=== PATIENT | male | born 1950 | race Caucasian/White ===

== ENCOUNTER → 2023-05-20 06:26 | Day surgery (SDC) | payer OTHER, SELFPAY ==
[2023-05-20 07:46] LABS: Glucose - Point of Care 96 mg/dl (70-99)
== END ==
LOC: GI 06:26
PROVIDERS: ATTENDING PHYSICIAN Internal Medicine Gastroenterology
DX: Z12.11 Encounter for screening for malignant neoplasm of colon (principal); Z86.010 Personal history of colon polyps; K57.30 Diverticulosis of large intestine without perforation or abscess without bleeding; K63.5 Polyp of colon; D12.4 Benign neoplasm of descending colon
CPT/HCPCS: 45385; 88305; 82962

== ENCOUNTER → 2023-06-19 15:56 | Outpatient (REF) | payer OTHER, SELFPAY | LOC: RAD 15:56 | PROVIDERS: ATTENDING PHYSICIAN Nurse Practitioner Family | DX: M25.562 Pain in left knee (principal); M25.561 Pain in right knee | CPT/HCPCS: 73564 ==

== ENCOUNTER → 2024-05-11 12:35 | Outpatient (REF) | payer OTHER, SELFPAY | LOC: RAD 12:35 | PROVIDERS: ATTENDING PHYSICIAN Nurse Practitioner Family; FAMILY PHYSICIAN Family Medicine | DX: R91.8 Other nonspecific abnormal finding of lung field (principal) | CPT/HCPCS: 71250 ==

== ENCOUNTER 2024-06-08 06:04 | Day surgery (SDC) | payer OTHER, SELFPAY ==
[2024-05-18 13:53] LABS: Hematocrit 43.9 % (39.0-52.0); Hemoglobin 13.8 g/dL (13.0-18.0); Mean Corp Hgb Conc. 31.4 g/dL (33.0-37.0); Mean Corpuscular Hgb 26.1 pg (27.0-31.0); Mean Platelet Volume 12.4 fL (7.4-10.4); Platelet Count 159 10^3/uL (130-400); Red Blood Cell Count 5.29 10^6/uL (4.70-6.10); Red Cell Dist. Width 14.7 % (11.5-14.5); White Blood Cell Count 7.4 10^3/uL (4.8-10.8)
[2024-05-18 14:06] VITALS: BMI 31.6
[2024-05-18 14:43] LABS: Glycohemoglobin (HgbA1c) 6.2 % (4.0-5.6)
[2024-05-18 15:03] LABS: ALT (SGPT) 31 U/L (0-50); AST (SGOT) 32 U/L (17-59); Albumin 4.6 g/dl (3.5-5.0); Alkaline Phosphatase 67 U/L (38-126); Blood Urea Nitrogen 19 mg/dl (9-20); Calcium 9.9 mg/dl (8.4-10.2); Carbon Dioxide 28 mmol/L (22-30); Chloride 99 mmol/L (98-107); Estimated Creatinine Clearance 89 ml/min; Glucose 161 mg/dl (70-99); Sodium 137 mmol/L (135-145); Total Bilirubin 1.1 mg/dl (0.2-1.3); Total Protein 6.8 g/dl (6.3-8.2); eGFR > 60.00
--- NOTE | 2024-05-25 15:27 | VNURNOTE ---
Patient is scheduled for an elective R TKA on 06/08/24- he is a same day patient with Dr Ordaz. Spoke with patient prior to surgery. Introduced role of [facility] Liaison. Patient reports that he lives with his in a MULTI story home.
There are 3 steps to enter and a flight of steps to the second floor.
There is a powder room on the branch associate. He has a a rolling walker and is working on obtaining a cane.
PCP is Dr Fair.
Discussed [facility] joint protocol and post surgical plans.
Reviewed that he will have VN services initially and will then start outpatient PT.
Patient selects [facility] for his home care needs and will go to [facility] for outpatient PT. Scheduled for 06/13.
Patient is in agreement with plan and states that his will be home with him. Advised to bring RW with him day of surgery. Referral placed in [facility].
Plan: [facility] per [facility] joint protocol on 06/08 then outpt PT on 06/13
[2024-06-07 09:09] VITALS: BMI 31.6
[2024-06-08] VITALS (13 sets, daily range): BP systolic 100–159; BP diastolic 62–93; O2SAT 94
[2024-06-08] MEDS: MOBIC 15 MG PO (07:00)
[2024-06-08] MEDS: NORMOSOL-R/PLASMALYTE-A 1000 IV (07:16)
--- NOTE | 2024-06-08 07:16 | W.DS.TRANS ---
DC Summary - First Assist
-
Discharge Instructions:
Sleep Apnea Risk Intermediate
Discharge Diagnosis/Procedures R TKA 06/08/24
Diet Diabetic, Carb Controlled
Activity With Walker
Driving Restrictions No driving
Bathing Restrictions OK to Shower
Other Services PT
Instructions:
Stand-Alone Forms: SDS Total Hip and Knee D/C
Changes to Home Medications: Yes
Discharge Medications:
DC Medications w/original date entered in [facility] [employer])
furosemide 40 mg tablet 20 mg PO Q48H 12/20/20
spironolactone 25 mg tablet 12.5 mg PO Q48H 12/20/20
carvedilol 3.125 mg tablet 3.125 mg PO BID 05/18/24
cefadroxil 500 mg capsule 500 mg PO BID #14 caps 05/18/24
cholecalciferol (vitamin D3) 25 mcg (1,000 unit) tablet (Vitamin D3) 75 mcg PO QPM 05/18/24
famotidine 20 mg tablet (Pepcid) 20 mg PO HS #30 tabs 05/18/24
fluticasone furoate 100 mcg-vilanterol 25 mcg/dose inhalation powder (Breo Ellipta) 1 inh inhalation DAILY 05/18/24
gabapentin 300 mg capsule 300 mg PO HS neuropathic pain/sleep #10 caps 05/18/24
metformin 1,000 mg tablet 1,000 mg PO QPM 05/18/24
mupirocin 2 % topical ointment 1 applic intranasal BID #1 tube 05/18/24
ondansetron HCl 4 mg tablet 4 mg PO Q6H PRN nausea and vomiting #30 tabs 05/18/24
oxycodone 5 mg tablet 5 - 10 mg (1 - 2 x 5 mg) PO Q6H PRN moderate-severe pain #30 tabs 05/18/24
rosuvastatin 10 mg tablet (Crestor) 10 mg PO HS 05/18/24
Saccharomyces boulardii 250 mg capsule (Florastor) 250 mg PO BID #1 cap 06/08/24
acetaminophen 500 mg tablet 1,000 mg (2 x 500 mg) PO QID #0 tabs 06/08/24
apixaban 5 mg tablet (Eliquis) 2.5 mg (1/2 x 5 mg) PO BID Blood clot prevention/tx/afib #0 tabs 06/08/24
docusate sodium 100 mg capsule (Colace) 100 mg PO BID stool softner #1 cap 06/08/24
magnesium hydroxide 400 mg/5 mL oral suspension (Milk of Magnesia) 30 ml PO HS PRN Constipation #1 mL 06/08/24
sennosides 8.6 mg tablet (Senokot) 17.2 mg (2 x 8.6 mg) PO BID laxative #2 tabs 06/08/24
Home Medication Changes
cefadroxil 500 mg capsule 500 mg PO BID #14 caps 05/18/24
famotidine 20 mg tablet (Pepcid) 20 mg PO HS #30 tabs 05/18/24
gabapentin 300 mg capsule 300 mg PO HS neuropathic pain/sleep #10 caps 05/18/24
mupirocin 2 % topical ointment 1 applic intranasal BID #1 tube 05/18/24
ondansetron HCl 4 mg tablet 4 mg PO Q6H PRN nausea and vomiting #30 tabs 05/18/24
oxycodone 5 mg tablet 5 - 10 mg (1 - 2 x 5 mg) PO Q6H PRN moderate-severe pain #30 tabs 05/18/24
Saccharomyces boulardii 250 mg capsule (Florastor) 250 mg PO BID #1 cap 06/08/24
acetaminophen 500 mg tablet 1,000 mg (2 x 500 mg) PO QID #0 tabs 06/08/24
apixaban 5 mg tablet (Eliquis) 2.5 mg (1/2 x 5 mg) PO BID Blood clot prevention/tx/afib #0 tabs 06/08/24
docusate sodium 100 mg capsule (Colace) 100 mg PO BID stool softner #1 cap 06/08/24
magnesium hydroxide 400 mg/5 mL oral suspension (Milk of Magnesia) 30 ml PO HS PRN Constipation #1 mL 04/02/25
sennosides 8.6 mg tablet (Senokot) 17.2 mg (2 x 8.6 mg) PO BID laxative #2 tabs 06/08/24
Pending Results: No
[2024-06-08 07:18] LABS: Glucose - Point of Care 111 mg/dl (70-99)
[2024-06-08 09:04] LABS: Glucose - Point of Care 107 mg/dl (70-99)
[2024-06-08 11:33] LABS: Glucose - Point of Care 140 mg/dl (70-99)
[2024-06-08] MEDS: ANCEF 5 IV (11:48)
--- NOTE | 2024-06-08 12:39 | PTCARENOTE ---
Patient was slightly clammy so PT pushed back from 1230 to 1245. Patient receiving IV fluids at the present time. VS stable. Will monitor patient.
== END 2024-06-08 13:11 | disposition home or self-care (01) ==
LOC: SDS 06:04
PROVIDERS: ATTENDING PHYSICIAN Orthopaedic Surgery; FAMILY PHYSICIAN Family Medicine
DX: M17.11 Unilateral primary osteoarthritis, right knee (principal)
CPT/HCPCS: 27447; 36415; 73560; 80053; 82962; 83036; 85027; 87070; 97116; 97162; C1713; C1776

== ENCOUNTER → 2024-12-28 08:04 | Outpatient (REF) | payer OTHER, SELFPAY | LOC: RCS 08:04 | PROVIDERS: ATTENDING PHYSICIAN Internal Medicine Cardiovascular Disease; FAMILY PHYSICIAN Family Medicine | DX: I10 Essential (primary) hypertension (principal); I48.0 Paroxysmal atrial fibrillation; I48.91 Unspecified atrial fibrillation; I25.10 Atherosclerotic heart disease of native coronary artery without angina pectoris | CPT/HCPCS: 93306 ==